=== PATIENT | female | born 1970 | race Caucasian/White ===

== ENCOUNTER → 2018-06-11 11:56 | Outpatient (CLI) | payer OTHER, SELFPAY ==
--- NOTE | 2018-06-11 12:00 | BI_ITS ---
MAMMOGRAPHY - BILATERAL SCREENING REASON FOR EXAM: Female, 48 years old. Routine annual screening examination. PERTINENT HISTORY: Aunt with breast cancer. TECHNIQUE: Digital bilateral breast magdi (3D mammographic acquisition) in the CC and MLO projections. 2-D mediolateral oblique (MLO) and craniocaudad (CC) views of both breasts were obtained. CAD: Full Field Digital Mammography with Computer Added Detection was performed. COMPARISON: Comparison is made with prior study dated 2016 and January 15, 2015. FINDINGS: Breast Composition: There are scattered areas of fibroglandular density. There are no dominant masses or suspicious calcifications. Stable asymmetric breast tissue with more breast tissue is seen in the inferior lateral portion of the right breast. Prior ultrasound of this region demonstrated several small cysts. No other significant abnormalities are identified. There has been no significant change since the prior study. BI/SCREENING MAMM (CAD), BILAT IMPRESSION: Stable bilateral screening mammogram. Yearly follow-up mammogram recommended. (A) ASSESSMENT CATEGORY: BIRADS Category 2: Benign. A letter regarding these results will be sent to the patient by the facility within 30 days. Approximately 10% of breast cancers are not detected by mammography. A normal mammogram should not delay biopsy of a clinically suspicious abnormality. [id number] Electronically Signed: Raf Wyatt MD at 13:37 EST , Service support ,
== END ==
PROVIDERS: Family Provider Internal Medicine; PCP Internal Medicine; Visit Provider Internal Medicine
DX: Z12.31 Encounter for screening mammogram for malignant neoplasm of breast (principal)
CPT/HCPCS: 77063; 77067

== ENCOUNTER → 2018-11-22 | Outpatient (CLI) | payer OTHER, SELFPAY ==
--- NOTE | 2018-11-22 10:21 | RAD_ITS ---
STUDY: X-RAY CHEST REASON FOR EXAM: Female, 48 years old. 5 day history of cough. TECHNIQUE: PA and lateral views of the chest. COMPARISON: Comparison is made with prior examination dated December 22, 2014. FINDINGS: There are now is evidence of infiltration in the right middle lobe. Radiographic follow-up is recommended. There is no demonstrated pleural abnormality. Normal size heart. Normal mediastinum and reshma. Normal visualized pulmonary arteries. Normal visualized aortic arch and descending thoracic aorta. There are diffuse degenerative changes of the visualized thoracic spine. Normal visualized ribs, clavicles, and shoulders. There is no demonstrated abnormality of the visualized soft tissue structures of the upper abdomen. RAD/Chest PA and Lateral IMPRESSION: Right middle lobe infiltration. Follow-up is recommended. Electronically Signed: Raf Wyatt, at 10:44 EDT , Service support ,
== END | disposition home or self-care (01) ==
LOC: HPRAD 10:15
PROVIDERS: Family Provider Internal Medicine; PCP Internal Medicine; Referring Provider Nurse Practitioner; Visit Provider Nurse Practitioner
DX: J45.901 Unspecified asthma with (acute) exacerbation (principal)
CPT/HCPCS: 71046

== ENCOUNTER → 2019-01-24 13:22 | Outpatient (CLI) | payer OTHER, SELFPAY ==
--- NOTE | 2019-01-24 13:29 | CT_ITS ---
STUDY: CT ABDOMEN WITH CONTRAST REASON FOR EXAM: Female, 48 years old. Right upper quadrant pain RADIATION DOSAGE (If Supplied By Facility): CTDIvol = ( 14.93 ) mGy, DLP = ( 930.97 ) mGycm TECHNIQUE: Transaxial images were obtained post I.V. administration of IV/Oral Isovue 300 100, and oral contrast. Sagittal and coronal images were reconstructed. Individualized dose optimization techniques were used for this CT. COMPARISON: None. FINDINGS: The lung bases are clear. The liver is normal. No dilated intrahepatic biliary radicles. Previous cholecystectomy The spleen is normal. The pancreas is normal. Both adrenals are normal. The kidneys are normal with no masses, calculi or hydronephrosis The stomach is normal. There is no bowel distention, acute appendicitis or diverticulitis. No constricting lesions are seen in large bowel. The abdominal wall is intact with no hernias. There is no ascites or any free intraperitoneal air. No indication of epiploic appendagitis The vascular structures in the retroperitoneum are normal. There is no retrocrural, retroperitoneal or mesenteric adenopathy. Degenerative changes of the lower thoracic spine at L5-S1 CT/Abdomen WITH IV Contrast IMPRESSION: Previous cholecystectomy. No acute findings in the upper abdomen Electronically Signed: Jose Keller MD at 1:04 EDT Tel , Service support ,
== END ==
PROVIDERS: Family Provider Internal Medicine; PCP Internal Medicine; Referring Provider Internal Medicine Gastroenterology; Visit Provider Internal Medicine Gastroenterology
DX: K76.0 Fatty (change of) liver, not elsewhere classified (principal); R10.11 Right upper quadrant pain
CPT/HCPCS: 74160; Q9967

== ENCOUNTER → 2019-06-21 15:26 | Outpatient (CLI) | payer OTHER, SELFPAY ==
--- NOTE | 2019-06-21 15:29 | BI_ITS ---
MAMMOGRAPHY - BILATERAL SCREENING REASON FOR EXAM: Female, 49 years old. Routine annual screening examination. PERTINENT HISTORY: Aunt with breast cancer. TECHNIQUE: Digital bilateral breast tahir (3D mammographic acquisition) in the CC and MLO projections. 2-D mediolateral oblique (MLO) and craniocaudad (CC) views of both breasts were obtained. CAD: Full Field Digital Mammography with Computer Added Detection was performed. COMPARISON: Comparison is made with prior study dated June 11, 2018 and April 25, 2016. FINDINGS: Breast Composition: There are scattered areas of fibroglandular density. There are no dominant masses or suspicious calcifications. Once again, there is stable asymmetric breast tissue with more breast tissue seen in the inferior lateral portion of the right breast. Prior ultrasound demonstrated these to be small cysts. No other significant abnormalities are identified. There has been no significant change since the prior study. BI/SCREEN MAMM (CAD) W/TAHIR BILAT IMPRESSION: Stable bilateral screening mammogram. Yearly follow-up mammogram recommended. (A) ASSESSMENT CATEGORY: BIRADS Category 2: Benign. A letter regarding these results will be sent to the patient by the facility within 30 days. Approximately 10% of breast cancers are not detected by mammography. A normal mammogram should not delay biopsy of a clinically suspicious abnormality. [id number] Electronically Signed: Raf Wyatt, at 8:26 EST , Service support ,
== END ==
PROVIDERS: PCP Internal Medicine; Referring Provider Internal Medicine; Visit Provider Internal Medicine
DX: Z12.31 Encounter for screening mammogram for malignant neoplasm of breast (principal)
CPT/HCPCS: 77063; 77067

== ENCOUNTER → 2020-08-20 12:26 | Outpatient (CLI) | payer OTHER, SELFPAY ==
[2019-12-07 11:34] VITALS: BMI 41.8
--- NOTE | 2020-08-20 12:30 | BI_ITS ---
MAMMOGRAPHY - BILATERAL SCREENING REASON FOR EXAM: Female, 50 years old. Routine annual screening examination. PERTINENT HISTORY: Aunt with breast cancer. Occasional clear right breast discharge. TECHNIQUE: Digital bilateral breast tahir (3D mammographic acquisition) in the CC and MLO projections. 2-D mediolateral oblique (MLO) and craniocaudad (CC) views of both breasts were obtained. CAD: Full Field Digital Mammography with Computer Added Detection was performed. COMPARISON: Comparison is made with prior examination dated 06/21/2019 and 06/11/2018. FINDINGS: Breast Composition: The breasts are heterogeneously dense, which may obscure small masses. There are no dominant masses or suspicious calcifications. Stable well-defined nodular densities in the slightly inferior lateral aspect of the right breast. These were demonstrated to be cysts on prior sonogram dated 04/30/2016. No other significant abnormalities are identified. There has been no significant change since the prior study. BI/SCRN MAMM (CAD)W/TAHIR BILAT IMPRESSION: Stable bilateral screening mammogram. Yearly follow-up mammogram recommended. (A) ASSESSMENT CATEGORY: BIRADS Category 2: Benign. A letter regarding these results will be sent to the patient by the facility within 30 days. Approximately 10% of breast cancers are not detected by mammography. A normal mammogram should not delay biopsy of a clinically suspicious abnormality. [id number] Electronically Signed: Raf Wyatt MD at 14:05 EDT , Service support ,
== END ==
PROVIDERS: PCP Internal Medicine; Referring Provider Internal Medicine; Visit Provider Internal Medicine
DX: Z12.31 Encounter for screening mammogram for malignant neoplasm of breast (principal)
CPT/HCPCS: 77063; 77067

== ENCOUNTER → 2020-09-24 | Outpatient (CLI) | payer OTHER, SELFPAY ==
[2020-09-24 13:09] VITALS: BMI 36.7
[2020-09-27 12:19] LABS: HPV APTIMA, High Risk Negative (Negative)
== END | disposition home or self-care (01) ==
LOC: LABSPEC 16:55
PROVIDERS: PCP Internal Medicine; Visit Provider Obstetrics & Gynecology
DX: Z12.4 Encounter for screening for malignant neoplasm of cervix (principal)
CPT/HCPCS: 87624; 88175; G0145

== ENCOUNTER 2021-07-03 16:31 | Outpatient (CLI) | payer OTHER, SELFPAY ==
--- NOTE | 2021-07-03 | EMB_PTH ---
PATIENT: [facility]ODORA DOUGLAS [id number] AGE/SX: 51/F ROOM: RE07/03/[address]: JANA Blancas : 1970 BED: DIS: 07/03/2021 SPEC #: [id number] RECD: 07/03/21 16:29 STATUS: HALEY REHeidi #: [id number] DELFINA: 07/03/21 00:[address]: Tracey León NP DEPT: SURGICAL PATHOLOGY RECD BY: Jus Hay ENTERED: 07/04/21 07:53 SP TYPE: ENDOM BX/C PETE DR: Dr. Mica Foss DO Tissues: Endometrium, NOS Procedures: Surgery Specimen Level IV HEADER OPERATION: Endometrial biopsy PRE-OP DIAGNOSIS: Abnormal uterine bleeding TISSUE SUBMITTED: Endometrial biopsy MICROSCOPIC DIAGNOSIS Endometrium, biopsy: Simple hyperplasia without atypia. AM:dieudonne 07/05/2021 MICROSCOPIC DESCRIPTION Slides are reviewed. GROSS DESCRIPTION Received is one container labeled with the patient's name and not further designated. The specimen consists of multiple irregular fragments of pink-dove soft tissue that in aggregate measure 6 x 3 x 0.2 cm. The specimen is totally submitted in two cassettes. / AM:dieudonne 07/05/2021 TC:? CPT: 95568
== END 2021-07-03 23:59 | disposition home or self-care (01) ==
LOC: LABSPEC 16:33
PROVIDERS: PCP Internal Medicine; Referring Provider Nurse Practitioner Women's Health; Visit Provider Nurse Practitioner Women's Health
DX: N85.01 Benign endometrial hyperplasia (principal)
CPT/HCPCS: 88305

== ENCOUNTER 2021-07-12 12:10 | Outpatient (CLI) | payer OTHER, SELFPAY ==
--- NOTE | 2021-07-12 12:16 | US_ITS ---
STUDY: ULTRASOUND TRANSVAGINAL PELVIC ULTRASOUND EXAMINATION OF 1317 HOURS ON 07/12/2021 CLINICAL: Female, 51 years old. AUB -- bleeding continually since 06/09/21 -- on hormone meds for bleeding TECHNIQUE: Transvaginal COMPARISON: None. FINDINGS: An anteverted uterus is noted measuring 9.5 cm in length by 4.5 cm in AP diameter by 6.0 cm in transverse diameter. There is an 11 mm thick endometrium, which is mildly hyperechoic. There is a suggestion of one small uterine fibroid measuring 9 mm in diameter the posterior uterine body. A 1.4 cm diameter nabothian cyst and a normal cervix. There is no evidence of an intrauterine or ectopic . The right ovary measures 2.5 cm x 2.8 cm x 1.2 cm the left ovary measures 4.8 cm x 4.4 series by 3.3 cm. There is a 3.5 cm x 3.5 cm x 2.9 cm simple left ovarian cyst. There is no evidence of ovarian solid mass lesions. There is no evidence for ovarian torsion. There is no evidence of adnexal masses or free fluid in the cul-de-sac. US/Transvaginal Non- IMPRESSION: 1. Normal-size anteverted uterus with a mildly hyperechoic 11 mm thick endometrium. 2. Suggestion of one small uterine fibroid measuring 9 mm in diameter in the posterior uterine body. 3. Presence of a 1.4 cm simple nabothian cyst and a normal cervix. 4. No intrauterine or ectopic . 5. Normal sized ovaries without torsion. 6. Presence of a 3.5 cm in diameter simple left ovarian cyst. No ovarian solid mass lesions. 7. No adnexal masses or free fluid in the cul-de-sac. Electronically Signed: Bryson Modi MD at 19:23 EDT ,
--- NOTE | 2021-07-12 12:16 | US_ITS ---
STUDY: ULTRASOUND TRANSVAGINAL PELVIC ULTRASOUND EXAMINATION OF 1317 HOURS ON 07/12/2021 CLINICAL: Female, 51 years old. AUB -- bleeding continually since 06/09/21 -- on hormone meds for bleeding TECHNIQUE: Transvaginal COMPARISON: None. FINDINGS: An anteverted uterus is noted measuring 9.5 cm in length by 4.5 cm in AP diameter by 6.0 cm in transverse diameter. There is an 11 mm thick endometrium, which is mildly hyperechoic. There is a suggestion of one small uterine fibroid measuring 9 mm in diameter the posterior uterine body. A 1.4 cm diameter nabothian cyst and a normal cervix. There is no evidence of an intrauterine or ectopic . The right ovary measures 2.5 cm x 2.8 cm x 1.2 cm the left ovary measures 4.8 cm x 4.4 series by 3.3 cm. There is a 3.5 cm x 3.5 cm x 2.9 cm simple left ovarian cyst. There is no evidence of ovarian solid mass lesions. There is no evidence for ovarian torsion. There is no evidence of adnexal masses or free fluid in the cul-de-sac. US/Pelvic (Non ) IMPRESSION: 1. Normal-size anteverted uterus with a mildly hyperechoic 11 mm thick endometrium. 2. Suggestion of one small uterine fibroid measuring 9 mm in diameter in the posterior uterine body. 3. Presence of a 1.4 cm simple nabothian cyst and a normal cervix. 4. No intrauterine or ectopic . 5. Normal sized ovaries without torsion. 6. Presence of a 3.5 cm in diameter simple left ovarian cyst. No ovarian solid mass lesions. 7. No adnexal masses or free fluid in the cul-de-sac. Electronically Signed: Bryson Modi MD at 19:23 EDT ,
== END 2021-07-12 23:59 | disposition home or self-care (01) ==
PROVIDERS: PCP Internal Medicine; Referring Provider Nurse Practitioner Women's Health; Visit Provider Nurse Practitioner Women's Health
DX: N93.9 Abnormal uterine and vaginal bleeding, unspecified (principal)
CPT/HCPCS: 76830; 76856

== ENCOUNTER → 2021-08-21 | Outpatient (CLI) | payer OTHER, SELFPAY ==
--- NOTE | 2021-08-21 11:00 | BI_ITS ---
MAMMOGRAPHY - BILATERAL SCREENING REASON FOR EXAM: Female, 51 years old. Routine annual screening examination. PERTINENT HISTORY: Aunt with breast cancer. TECHNIQUE: Digital bilateral breast tahir (3D mammographic acquisition) in the CC and MLO projections. 2-D mediolateral oblique (MLO) and craniocaudad (CC) views of both breasts were obtained. CAD: Full Field Digital Mammography with Computer Added Detection was performed. COMPARISON: Comparison is made with prior study of 08/20/2020 and 06/21/2019 FINDINGS: Breast Composition: The breasts are heterogeneously dense, which may obscure small masses. There are no dominant masses or suspicious calcifications. Prior study, there is been a decrease of the size of the previously seen small amount of the ureter). No other significant abnormalities are identified. BI/SCRN MAMM (CAD)W/TAHIR BILAT IMPRESSION: Stable bilateral screening mammogram. Yearly follow-up mammogram recommended. (A) ASSESSMENT CATEGORY: BIRADS Category 2: Benign. A letter regarding these results will be sent to the patient by the facility within 30 days. Approximately 10% of breast cancers are not detected by mammography. A normal mammogram should not delay biopsy of a clinically suspicious abnormality. [id number] Electronically Signed: Raf Wyatt MD at 12:38 EDT ,
== END | disposition home or self-care (01) ==
LOC: OPBI 10:58
PROVIDERS: PCP Internal Medicine; Referring Provider Internal Medicine; Visit Provider Internal Medicine
DX: Z12.31 Encounter for screening mammogram for malignant neoplasm of breast (principal)
CPT/HCPCS: 77063; 77067

== ENCOUNTER 2021-09-10 05:23 | Day surgery (SDC) | payer OTHER, SELFPAY ==
[2021-09-04 16:05] LABS: Hematocrit 41.8 % (37-47); Hemoglobin 13.9 g/dL (12.0-15.0); Mean Corp Hgb Conc 33.3 g/dL (32-36); Mean Corpuscular Hgb 30.2 pg (27.0-32.0); Mean Corpuscular Volume 90.9 fL (81-99); Mean Platelet Vol. 11.6 fl (6.2-12.0); Platelet Count 282 K/mm3 (150-450); RBC Distribution Width CV 13.2 % (11.6-14.6); RBC Distribution Width SD 44.2 fl (35.1-43.9); White Blood Count 7.6 K/mm3 (4.4-11.0)
[2021-09-04 16:30] LABS: Magnesium 2.4 mg/dL (1.6-2.6)
[2021-09-10] VITALS (11 sets, daily range): BP systolic 95–129; BP diastolic 46–81; PULSE 53–78; RESP 16–20; TEMP 36.5–37.4; O2SAT 98–100; BMI 38.7
--- NOTE | 2021-09-10 | HYST_PTH ---
PATIENT: TEODORA DOUGLAS LOC: [facility] U#:[id number] AGE/SX: 51/F ROOM: RE09/10/[address]: Dr. Ailin Modi DO : 1970 BED: DIS: 09/10/2021 SPEC #: [id number] RECD: 09/10/21 12:49 STATUS: HALEY REHeidi #: [id number] DELFINA: 09/10/21 00:[address]: Ailin Modi DEPT: SURGICAL PATHOLOGY RECD BY: Jus Hay ENTERED: 09/10/21 12:49 SP TYPE: HYSTERECT OTHR DR: Dr. Mica Foss DO Tissues: Uterus, NOS Procedures: Surgery Specimen Level V HEADER OPERATION: ERAS, laparoscopic robotic hysterectomy, bilateral salpingectomy PRE-OP DIAGNOSIS: Endometrial hyperplasia, abnormal uterine bleeding TISSUE SUBMITTED: Cervix, uterus, bilateral fallopian tubes MICROSCOPIC DIAGNOSIS Cervix, uterus and bilateral fallopian tubes, hysterectomy and bilateral salpingectomy: Cervix ? chronic cystic cervicitis. Endometrium ? extensive exogenous hormone effects. - Negative for hyperplasia. Myometrium ? focal adenomyosis. Bilateral fallopian tubes - no pathologic diagnosis. SJ:dieudonne 09/11/2021 COMMENT Please make reference to previous specimen ([id number]) endometrium, biopsy with diagnosis of simple hyperplasia without atypia. MICROSCOPIC DESCRIPTION Slides are reviewed. GROSS DESCRIPTION Received in fixative is one container labeled with the patient's name and designated cervix, uterus, bilateral fallopian tubes. The specimen consists of a hysterectomy specimen consisting of uterus with cervix, attached left fallopian tube and detached right fallopian tube. The uterus with cervix weighs 113 gm and measures 9 x 6 x 4.5 cm. The serosal surface is dove, glistening. The ectocervical mucosa is unremarkable. The external os is oval in contour. The endocervical canal measures 3.5 cm in length and the endocervical mucosa is dove, glistening and unremarkable. Sections of the cervix reveal multiple cysts filled with mucoid material. The triangular endometrial cavity measures 4.5 cm in length and up to 3.5 cm in width. The endometrium is dove, glistening without any mass lesion and measures up to 0.3 cm in thickness. Sections of the uterine wall do not reveal any mass lesion and measures up to 2 cm in thickness. The right fallopian tube measures 6.5 cm in length and 0.2 to 0.5 cm in diameter. The fimbrial end is identified. Sections do not reveal any mass lesion. The left fallopian tube is similar appearance to right and measures 8 cm in length and 0.2 to 0.5 cm in diameter. Research Worker Encyclopedia sections are submitted in 11 cassettes as follows: 1 - anterior cervix, 2 - posterior cervix, 3-5 - anterior uterine wall, 6-9 - posterior uterine wall, entire endometrium is submitted, 10 - right fallopian tube, 11 - left fallopian tube. / SJ:rg 09/10/2021 TC:5 CPT: 19791
[2021-09-10 06:05] LABS: Bedside Glucose 68 mg/dL (74-106)
[2021-09-10 06:21] LABS: Internal QC Validated? YES +Cl - CLEAR BKGD; Pregnancy, Urine Negative Negative
[2021-09-10] MEDS: Lactated Ringers 1,000 ML 40 ML IV (06:21)
[2021-09-10] MEDS: dexAMETHasone 10 MG/ML Vial 8 MG IV (06:23)
[2021-09-10] MEDS: Gabapentin 600 MG Tablet PO (06:32)
[2021-09-10] MEDS: Acetaminophen 500 MG Tablet 1000 MG PO (06:33)
[2021-09-10] MEDS: Celecoxib 200 MG Capsule 400 MG PO (06:40)
--- NOTE | 2021-09-10 07:29 | PCM.DC ---
Discharge Instructions Diet Discharge Diet: No restrictions Activity May resume sexual activity in: 6 weeks Weight Bearing Status: Full weight bearing Dressing / Incision Call your doctor if your incision/area has: Continuous Slow Oozing, Sudden Increased Bleeding, Increased Pain/ Swelling, Increased Redness and Foul Smelling Discharge Call your doctor if you observe: Fever of 101 or Higher, Using more than 1 pad per hour, Shortness of breath, Chest pain and Uncontrolled pain Suture Line Care: Avoid Pulling/Pushing and Avoid Pinching/Bending Remove Dressing in: 1 week (if present) Cleanse incision/area with: Soap & Water and Keep Dressing Clean & Dry Follow Up Care Please Follow Up With: Ailin Modi DO When: Call to make an appointment with your doctor for a postop visit in 2 and 6 weeks Test Results: Test results from this visit will be discussed in further detail at your follow-up appointment, if applicable. Discharge Plan Admission Primary Reason for Your Visit: hysterectomy Attending Provider: Ailin Modi Primary Care Provider: Mica Foss Discharge Orders/Prescriptions Prescriptions: New ibuprofen 800 mg tablet 800 mg PO Q8H PRN (Reason: pain) 7 Days Qty: 30 RF: 0 oxycodone-acetaminophen [Percocet] 5-325 mg tablet 1 tab PO Q4H PRN (Reason: pain) 7 Days Qty: 30 RF: 0 ondansetron 4 mg tablet,disintegrating 4 mg PO Q8H PRN (Reason: nausea and vomiting) Qty: 30 RF: 0 Continued cholecalciferol (vitamin D3) [Vitamin D3] 50 mcg (2,000 unit) tablet 50 mcg PO DAILY RF: 0 vitamin E 200 unit capsule 400 unit PO DAILY RF: 0 metformin 500 mg tablet 1,000 mg PO DAILY RF: 0 turmeric 400 mg capsule 400 mg PO DAILY RF: 0 vitamin V57-vvcaf acid 500-400 mcg tablet 1 tab PO DAILY RF: 0 milk thistle 150 mg capsule 150 mg PO BID RF: 0 albuterol sulfate 1 INHALER inhaler 1 - 2 puff inhalation Q6H PRN PRN (Reason: Asthma) RF: 0 Referrals / Follow Up: Mica Foss DO [Primary Care Provider] - Disposition Disposition (needs filled in before D/C Order can be placed): Home, Self Care
[2021-09-10] MEDS: Cefazolin 2 GM in 0.9% Normal Saline 100 ML IV (07:36)
--- NOTE | 2021-09-10 08:00 | HP.PCM_ITS ---
History and Physical Date of Admission: 09/10/21 MR#:[id number]:[id number]: TEODORA DOUGLAS [facility] #:[id number]:[id number] Provider:Dr. 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 Is patient in pain?: No Allergies No Known Allergies Allergy (Verified 08/28/21 08:30) Medications cholecalciferol (vitamin D3) 50 mcg (2,000 unit) tablet 50 mcg PO DAILY 12/07/19 [History Confirmed 08/28/21] vitamin B complex 1 tab PO .WEEKLY tab 12/07/19 [History Confirmed 08/28/21] vitamin E 200 unit capsule 400 unit PO DAILY cap 12/07/19 [History Confirmed 08/28/21] albuterol sulfate 1 - 2 puff INHALATION Q6H PRN PRN 12/19/19 [History Confirmed 08/28/21] metformin 500 mg tablet 1,000 mg PO DAILY tab 07/03/21 [History Confirmed 03/11] milk thistle 150 mg capsule 150 mg PO BID 07/03/21 [History Confirmed 08/28/21] turmeric 400 mg capsule mg PO 07/03/21 [History Confirmed 08/28/21] vitamin B12 500 mcg-folic acid 400 mcg tablet 1 tab PO DAILY 07/03/21 [History Confirmed 08/28/21] megestrol 40 mg tablet 40 mg PO .COMPLEX #60 tab 07/29/21 [Rx Confirmed 08/28/21] Post menopausal: No Patient : No : No PFSH Medical History Asthma High cholesterol IBS (irritable bowel syndrome) Liver disease Neoplasm of skin of back Polycystic ovary Vitamin D deficiency Surgical History History of appendectomy History of cholecystectomy History of excision of lesion Family History Grandmother Angina at rest Heart disease High blood cholesterol Osteoporosis Father Asthma Mother Arthritis History of blood clots Heart disease Hypertension Aunt Breast cancer Diabetes Cancer uterine/paternal aunt Brother Cancer Depression Social History Smoking Status: Never smoker alcohol intake: never substance use type: does not use caffeine: Yes what type of physical activity do you participate in: walking, running, bicycling, aerobics and weight training frequency: 5-6 times per week additional social history: -Henrique HPI total robotic hyst. BS cysto Details: TEODORA DOUGLAS is a 51 year old (vaginal deliveries) who presents for discussion about hysterectomy. She states that she is tired of all the heavy bleeding and she recently was diagnosed with simple hyperplasia without atypia in the endometrium. Ultrasound shows a 9 cm uterus with a small fibroid and polycystic appearing ovaries. She has tried ocps and progesterone only methods and states that she can not tolerate the side effects of the medication Pregancy History 2 Elective abortions Hx Para 2 Spontaneous abortions Hx # Term Pregnancies Ectopic pregnancies Hx # Pregnancies Multiple births # of living children Past Pregnancies Del. Date Name GA/Weeks Outcome Route Bth Weight Infant Gen Labor Lgth Anesthesia Del Locatn Provider FOB Unknown Laurita Unknown Mckenna ROS Const ROS Unobtainable: All systems reviewed & are unremarkable except as noted in H Resp Resp: Reports system reviewed and no additional complaints, except as docu mented; Denies cough GI GI: Reports as per HPI Psych Psych: Reports system reviewed and no additional complaints, except as documented Exam Const General: cooperative, healthy appearing, comfortable and no acute distress Resp Effort & Inspection: normal respiratory effort Skin General: no rashes or lesions noted Psych Appearance: grossly normal Speech and Movement: speech and movement normal Coding Level of Care Code Off vis,est,level 3 Diagnoses Endometrial hyperplasia N85.00 Abnormal uterine bleeding (AUB) N93.9 Assessment and Plan Assessment and Plan (1) Endometrial hyperplasia: Status: Acute Plan - Dr. Ailin Modi, DO: continue aygestin until surgery. After discussing the patient's diagnosis and treatment plan options, patient wishes to proceed with surgical management. I have discussed with the patient the risks, benefits, and alternatives of the procedure which include but are not limited to risks of anesthesia, bleeding, infection, possible damage to bowel, bladder, or surrounding vasculature which could lead to additional surgery to evaluate any complications. Patient agrees to procedure and wishes to proceed. ACOG/uptodate references given for additional information regarding procedure. plan for total robotic hysterectomy, bilateral salpingectomy, and cystoscopy (2) Abnormal uterine bleeding (AUB): UPDATE- I have seen the patient and performed any clinically relevant updates to the history and physical exam. Marva
--- NOTE | 2021-09-10 09:16 | PCM.OPRPT ---
Problems Associated Problem List Diagnoses (1) Status post hysterectomy: (2) Family history of skin cancer: (3) Mass of face: (4) Abnormal uterine bleeding (AUB): (5) Endometrial hyperplasia: Report of Operation Date of Procedure: 09/10/21 Pre-Operative Diagnosis: endometrial hyperplasia, abnormal uterine bleeding Post-Operative Diagnosis: endometrial hyperplasia, abnormal uterine bleeding Surgery/Procedure Performed:: Total robotic hysterectomy, bilateral salpingectomy, cystoscopy Description of Surgical Findings:: boggy uterus, enlarged to 12 cm, diffuse dilated blood vessels within the uterus. normal fallopian tubes and ovaries. Surgeon: Ailin Modi hat cleaner: Rachelle Chery Type of Anesthesia: General Anesthesiologist: Dale Wen Specimen's removed: uterus, cervix, fallopian tubes Drains: none Estimated Blood Loss (mL): 50cc Fluids Replaced: 1 liter Description of Procedure: Reason for surgery: This is a 51-year-old G2, P2 who presented to my office with history of endometrial hyperplasia and heavy periods. The hyperplasia is simple without atypia and she declined iud or progesterone therapy. the planned procedure is for a robotic hysterectomy the risks benefits and alternatives were discussed with the patient the patient had a clear understanding of the procedure and a consent form was signed. Procedure: The patient was placed in the dorsal low lithotomy position and prepped and draped in the normal sterile fashion both abdominally and in the perineum. Her legs were placed in stirrups a Ewi catheter was inserted into the urethra without difficulty. A weighted speculum was placed in the vagina and a single-tooth tenaculum was used to grasp the anterior lip of the cervix. An advincula uterine manipulator was inserted through the cervix without complication. It was then tied into place at the 2 and 10:00 locations on the cervix. Gloves were changed and attention was turned towards the abdomen. Approximately 23 cm above the pubic symphysis in the midline, and after Marcaine injection, a 8 mm incision was made. An 8 mm trocar was inserted through the laparoscope, then inserted into the abdomen under direct visualization using the laparoscope. Good abdominal placement was noted and no complications were appreciated. An air seal device was utilized to create pneumoperitoneum. At 12 cm lateral to the midline on the left and right sides 8 mm accessory ports were placed. Next a left upper quadrant 8 mm assistant finance manager port site was placed. The patient was placed in steep Trendelenburg position. The robot was docked. There was noted to be adhesions of her bowel to the right pelvic side wall. Omental adhesions were taken down, the bowel was not touched and did not appear to be causing any pathologic abnormality. The hysterectomy was initiated first by taking down the round ligament on each side using the vessel sealer device. The fallopian tubes were removed by cauterizing and cutting the underlying mesosalpinx to the level of the cornual region of the uterus. The broad ligament was then and taken down using the vessel sealer device. Next the bladder flap was taken down without complication. This was done using monopolar cautery to the level of the cervical vaginal junction. After the bladder flap was created, uterine vessels were then isolated and cauterized using the vessel sealer device and EndoShears. At this point the uterine vessels were taken down further starting from the ascending branch, dissecting along the edges of the cervix to the level of the cervical vaginal junction with hemostasis appreciated. The cervical vaginal junction was then using monopolar cautery in a circumferential pattern across the superior aspect of the cervix. The specimen was delivered through the vagina and sent to pathology. The remaining vaginal cuff was then closed using V lock suture. This was performed in a running technique. Excellent hemostasis was obtained and good closure was noted. Irrigation was then performed. All operative sites were noted to be hemostatic. A cystoscopy was performed with a 70 degree cystoscope through the urethra into the bladder without complication. The bladder was instilled with approximately 250 cc of normal saline. Intraoperative images were made. Ureteral orifices and jets were identified. No suture material was appreciated in the bladder. The bladder was then drained and cystoscope was removed. The abdominal cavity was again examined using the laparoscope after the robot was undocked. All operative sites were noted to be hemostatic. The trochars were removed under direct visualization without complication and pneumoperitoneum was reduced. At this point the skin was then closed using 4-0 Monocryl subcuticular stitch and sealed with surgical glue. The patient tolerated the procedure well sponge lap and needle counts were correct x2 the patient was taken to the recovery room in stable condition. Grafts/Implants Used: none Complications none Admit VTE Documentation VTE Present on Admission: Yes VTE Mechan Device Prophylaxis: SCD's VTE Pharm Prophylaxis ordered?: No Reason prophylaxis not ordered:: Treatment Not Indicated Multi Select Codes Urinary/Genital Urinary/Genital CPT Codes: 67028 TLH+BS/O <250gr uterus
[2021-09-10] MEDS: Bupivacaine Mpf 0.5% 30 ML VIAL (09:20)
[2021-09-10] MEDS: Ondansetron 4 MG/2 ML Vial IV (09:35)
[2021-09-10] MEDS: HYDROcodone Bitartrate/Apap 5/325 Tablet PO (12:50)
== END 2021-09-10 13:10 | disposition home or self-care (01) ==
LOC: SDC 05:24 → AC 05:24
PROVIDERS: Anesthesiology; PCP Internal Medicine; Referring Provider Obstetrics & Gynecology; Visit Provider Obstetrics & Gynecology
PROC: 0UT90ZZ Resection of Uterus, Open Approach (ICD-10-PCS; CPT 58571; principal; 2021-09-10 07:10)
DX: N80.0 Endometriosis of uterus (principal); N93.9 Abnormal uterine and vaginal bleeding, unspecified; E28.2 Polycystic ovarian syndrome; E78.00 Pure hypercholesterolemia, unspecified; J45.909 Unspecified asthma, uncomplicated; K58.9 Irritable bowel syndrome, unspecified; E55.9 Vitamin D deficiency, unspecified; Z79.899 Other long term (current) drug therapy; F41.9 Anxiety disorder, unspecified; G25.81 Restless legs syndrome; Z79.84 Long term (current) use of oral hypoglycemic drugs
CPT/HCPCS: 58571; 00840; 52000; 36415; 81025; 82962; 83735; 85027; 86850; 86900; 86901; 88307; J7120; J2405; J3475

== ENCOUNTER → 2022-02-03 | Outpatient (CLI) | payer OTHER, SELFPAY ==
--- NOTE | 2022-02-03 16:56 | CT_ITS ---
INDICATION: Lung nodule EXAMINATION: CT CHEST WITH CONTRAST - CT Chest W/ Contrast Injection TECHNIQUE: Helically acquired images were obtained of the chest following IV contrast. A radiation dose optimization technique was used for this scan. Reformatted images were performed. IV Contrast dosage and agent: 100 mL Isovue 300 COMPARISON: November 22, 2018 chest x-ray, January 24, 2019 CT scan abdomen and pelvis FINDINGS: LUNGS, PLEURA AND LARGE AIRWAYS: There is a right lower lobe pulmonary nodule measuring 1.3 x 1.2 cm which is well-circumscribed and appears to contain a centrally located subtle calcification. Prior study it measured approximately 1.3 x 1.2. There is a smaller adjacent nodule that is seen on the prior study measuring approximately 4.3 mm that on today''s study measures 6.6 mm. No pleural effusion or thickening. No pneumothorax. THYROID: No thyroid lesions. HEART AND PERICARDIUM: There is borderline cardiac enlargement. No pericardial effusion. VESSELS: Thoracic aorta is not dilated. No aortic dissection. No obvious central pulmonary embolism although this study was not performed with the pulmonary embolism protocol. MEDIASTINUM AND TANNA: There is a right hilar lymph node with a subtle calcification centrally that measures 9.1 mm. Esophagus is unremarkable. No hiatal hernia. UPPER ABDOMEN: The liver is enlarged mildly fatty infiltrated. BONES: There is multilevel degenerative change of the thoracic spine. CT/Chest WITH Contrast IMPRESSION: There is a relatively stable and is triangular-shaped nodule within the right lower lobe with a central calcification that likely represents prior granulomatous disease. However there is an adjacent nodule measures approximately 6.6 mm which is enlarged since prior study which measured 4.3 mm. Recommend follow-up CT scan of the chest in 6-12 months to ensure stability. Findings are most consistent with probable prior granulomatous disease including a lymph node in the right hilum with a tiny calcification. Degenerative change of the thoracic spine. Borderline cardiac enlargement. Electronically Signed: Shaniqua Ahn MD at 6:29 EDT ,
[2022-02-03 17:31] LABS: EGFR FINGERSTICK > 60.0000 mL/min (>60)
== END | disposition home or self-care (01) ==
PROVIDERS: PCP Internal Medicine; Referring Provider Internal Medicine; Visit Provider Internal Medicine
DX: R91.1 Solitary pulmonary nodule (principal)
CPT/HCPCS: 71260; Q9967

== ENCOUNTER → 2022-02-28 | Outpatient (CLI) | payer OTHER, SELFPAY ==
--- NOTE | 2022-02-28 07:31 | MRI_ITS ---
STUDY: MRI ABDOMEN WITH AND WITHOUT CONTRAST REASON FOR EXAM: Female, 51 years old. Pancreatic neoplasm- f/u to previous abnormal scan TECHNIQUE: Standardized fat and water weighted pulse sequences were obtained in all 3 orthogonal planes post contrast administration. IV 23ml Clariscan was administered for the contrast portion of the examination. COMPARISON: CT the chest 02/03/2022 FINDINGS: The visualized lung bases are unremarkable. The visualized portions of the heart are within normal limits. Normal liver. There is non-visualization of the gallbladder, which may be secondary to either contraction or a prior cholecystectomy. Normal spleen. Normal pancreas. Normal bilateral adrenal glands. Normal right kidney. Normal left kidney. Normal visualized stomach. Normal small intestine. Normal colon. There is non-visualization of the appendix. Normal abdominal aorta. Normal inferior vena cava. Normal retroperitoneum. Normal abdominal wall. Normal osseous structures. MRI/MRI Abd WITH and W/O Contrast IMPRESSION: Normal unenhanced and enhanced MRI of the abdomen. Electronically Signed: Kermit Mandujano MD at 18:18 EST ,
== END | disposition home or self-care (01) ==
LOC: MRI 07:19
PROVIDERS: PCP Internal Medicine; Referring Provider Internal Medicine; Visit Provider Internal Medicine
DX: D49.0 Neoplasm of unspecified behavior of digestive system (principal)
CPT/HCPCS: 74183; A9575; A4216

== ENCOUNTER → 2022-07-22 | Outpatient (CLI) | payer OTHER, SELFPAY ==
--- NOTE | 2022-07-22 17:41 | CT_ITS ---
STUDY: CT CHEST WITH CONTRAST REASON FOR EXAM: Female, 52 years old. Lung nodule RADIATION DOSAGE (If Supplied By Facility): CTDIvol = ( 18.02 ) mGy, DLP = ( 717.08 ) mGycm TECHNIQUE: Transaxial imaging was performed following intravenous administration of IV 100mL Isovue-300. Multiplanar coronal and sagittal images were reformatted. Individualized dose optimization techniques were used for this CT. COMPARISON: Comparison is made with prior study February 03, 2022. FINDINGS: CHEST Stable lobular nodule measuring 1.4 cm x 0.8 cm and the posterior lateral aspect of the right lower lobe. A faint calcific density seen within it. Anterior to this, is a 4.3 mm noncalcified nodule. There has been no change. There is no demonstrated pleural abnormality. Normal heart and pericardium. Normal mediastinum. Mildly calcified right hilar lymph node. Normal unenhanced pulmonary arteries. Normal aorta arch and descending thoracic aorta. There are multi-level degenerative changes of the thoracic spine. Fatty infiltration of the liver. CT/Chest WITH Contrast IMPRESSION: Stable examination. Electronically Signed: Raf Wyatt MD at 14:59 EDT ,
== END | disposition home or self-care (01) ==
LOC: CT 17:37
PROVIDERS: PCP Internal Medicine; Visit Provider Internal Medicine
DX: R91.1 Solitary pulmonary nodule (principal)
CPT/HCPCS: 71260; Q9967